=== PATIENT | female | born 1950 | race Asian ===

== ENCOUNTER → 2018-10-19 | Outpatient (CLI) | payer MEDICARE, OTHER | END | disposition home or self-care (01) | LOC: RADPV 08:25 | PROVIDERS: ATTEND General Practice | DX: Z13.820 Encounter for screening for osteoporosis (principal); M85.88 Other specified disorders of bone density and structure, other site; R09.89 Other specified symptoms and signs involving the circulatory and respiratory systems; I70.213 Atherosclerosis of native arteries of extremities with intermittent claudication, bilateral legs | CPT/HCPCS: 77080; 93925 ==